=== PATIENT | female | born 1945 | race Caucasian/White ===

== ENCOUNTER 2017-05-19 06:04 | Inpatient (IN) | payer MEDICARE, BC ==
[2017-05-11 15:22] LABS: BASOPHILS 0.4 %; BASOPHILS ABSOLUTE 0.03 10/3/uL (0.0-0.16); EOSINOPHILS ABSOLUTE 0.28 10/3/uL (0.0-0.53); IMMATURE GRANULOCYTES 0.1 %; IMMATURE GRANULOCYTES ABSOLUTE 0.01 10/3/uL (0.0-0.11); LYMPHOCYTES 46.7 %; LYMPHOCYTES ABSOLUTE 3.24 10/3/uL (0.67-4.30); MEAN CORPUSCULAR HEMOGLOB 31.6 pg (26.0-34.0); MEAN PLATELET VOLUME 9.7 fL (9.2-13.0); MONOCYTES 14.1 %; MONOCYTES ABSOLUTE 0.98 10/3/uL (0.21-1.20); NEUTROPHILS 34.7 %; RBC DISTRIBUTION WIDTH 15.3 % (12.0-16.0); RED CELL COUNT 4.02 10/6/uL (4.0-5.6)
[2017-05-11 15:24] LABS: HEMATOCRIT 38.4 % (36.0-48.0); HEMOGLOBIN 12.7 g/dL (12.0-16.0); MANUAL DIFF NO %; MEAN CORPUS HGB CONC 33.1 g/dL (32.0-36.0); MEAN CORPUSCULAR VOLUME 95.5 fL (80-100); PLATELET COUNT 382 10/3/uL (150-400); WHITE BLOOD CELLS 6.9 10/3/uL (4.5-10.5)
[2017-05-11 15:27] LABS: PROTIME (NOT ORD) 13.2 SEC (12.0-14.5)
[2017-05-11 15:34] LABS: BUN (BLOOD UREA NITROGEN) 16 MG/DL (6-23); CALCIUM, SERUM 9.6 MG/DL (8.5-10.4); CHLORIDE, SERUM 104 MMOL/L (96-112); CO2 (CARBON DIOXIDE) 31 MMOL/L (24-34); CREATININE 0.86 MG/DL (0.55-1.02); GFR AFRICAN AMERICAN 78 ML/MIN (>=60); GFR NON AFRICAN AMERICAN 67 ML/MIN (>=60); GLUCOSE, SERUM 81 MG/DL (60-99); POTASSIUM, SERUM 3.8 MMOL/L (3.5-5.3); SODIUM, SERUM 142 MMOL/L (135-148)
[2017-05-11 17:45] LABS: ASCORBIC ACID (UR NOT ORDER) 40 (NEG); BILIRUBIN, URINE NEGATIVE (NEG); KETONE, URINE NEGATIVE (NEG); LEUKOCYTE ESTERASE(NOT OR TRACE (NEG); WBC (NOT ORDERED) (RFLEX) 1 (0-5)
--- NOTE | ~2017-05-19 | OP ---
Record Of Operation [facility] [address] [place]. [address] NAME: ANA VALADEZ : 43 STATUS : ADM IN PAT#: [id number] AGE: 72 ADM/REG DATE : 05/19/17 MR#: [id number] REPORT SERV DATE: 05/19/17 DICTATED BY: TAVARES TORRES DATE: 05/19/17 REPORT STATUS : Draft TRANSCRIBED BY: MODL DATE: 05/19/17 DATE OF PROCEDURE: 05/19/2017 PREOPERATIVE DIAGNOSIS: Recurrent ovarian cancer. POSTOPERATIVE DIAGNOSIS: Recurrent ovarian cancer. PROCEDURE: 1. Diagnostic laparoscopy with extensive laparoscopic enterolysis, taking up approximately three hours of the four procedure. CPT code 90396. 2. Exploratory laparotomy with secondary tumor debulking for recurrent ovarian cancer. CPT code 88206. 3. Removal IP port. SURGEON: Tavares Torres MD. ANESTHESIA: General. ESTIMATED BLOOD LOSS: 25 mL. CRYSTALLOID: 1800 mL. DRAINS: Perez. FINDINGS: Extensive adhesive disease was noted in the upper abdomen and pelvis likely secondary to her intraperitoneal chemotherapy. She also had an IP port in place. There were extensive adhesive disease again noted in the upper abdomen and pelvis requiring extensive dissection, both laparoscopically and open. Laparoscopically even with image guidance, the lesion in question could not be identified. It was thought to be a lesion lateral to the right common iliac artery, but this was just fibroblastic tissue on frozen section. The procedure was then converted to an open procedure where again extensive enterolysis was performed, and the lesion was finally located in the mesentery of the loop of distal ileum. The lesion itself was well circumscribed and easily removed from the mesenteric peritoneum. No gross residual disease was noted. Following removal of this area of recurrence, there were no peritoneal deformities noted either. 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 COMPLICATIONS: None. POSTOPERATIVE PLAN: Extubated to PACU. PROCEDURE IN DETAIL: After informed consent was signed, the patient was taken to the operating room and placed in dorsal supine position where adequate general anesthesia was administered. She was then placed in dorsal lithotomy position in [facility], and Record Of Operation [facility] [address] [place]. [address] NAME: ANA VALADEZ : 43 STATUS : ADM IN PAT#: [id number] AGE: 72 ADM/REG DATE : 05/19/17 MR#: [id number] REPORT SERV DATE: 05/19/17 DICTATED BY: TAVARES TORRES DATE: 05/19/17 REPORT STATUS : Draft TRANSCRIBED BY: MILES DATE: 05/19/17 prepped and draped in usual fashion, and a Perez catheter was placed. A left upper quadrant incision was made with a scalpel and carried down to the fascia which was incised, muscle , posterior sheath entered sharply, trocar placed, and abdomen insufflated with CO2 gas. An additional trocar was placed in the left lower quadrant and using endoscopic scissors, extensive enterolysis was performed removing multiple loops of small bowel from the anterior abdominal wall to facilitate port placement. Two additional ports were placed into the right upper quadrant and right lower quadrant. Using the 5 mm scope, additional enterolysis was performed in the upper abdomen removing the small and large intestine from the anterior abdominal wall. Once enough room was present to place the camera port, the camera port was placed in the supraumbilical region. The patient was then placed in steep Trendelenburg and the robot was docked in the usual fashion. Extensive enterolysis was performed in the right lower quadrant where there were multiple redundant loops of small bowel adherent to the ureter, right common iliac artery, and vein. The mass in question on the PET-CT scan was noted to be 2 cm inferior to the bifurcation of the aorta and then 5 cm lateral. This area was searched for approximately 2 hours with multiple enterolysis performed but then no lesion was located. Decision at this point was made to abort the laparoscopic portion of the procedure and proceed with a laparotomy. A small midline laparotomy incision was then made after the robot was undocked and all instruments were removed the abdomen. The incision was carried down the fascia, which was incised, muscle , posterior sheath entered sharply, and incision extended inferiorly and superiorly. The Bookwalter retractor apparatus was assembled and deployed, and all trocars were removed from the abdomen. The extensive enterolysis was performed to restore normal anatomy to the small bowel, and the bowel was run from the terminal ileum to the ligament of Treitz and one loop of terminal ileum was flipped over on itself, and there was noted to be a 2 cm well circumscribed lesion in the mesentery of the terminal ileum. Using meticulous sharp dissection, this nodule was then removed from the peritoneum of the mesentery of the terminal ileum and was sent for frozen section which confirmed recurrent high-grade serous ovarian cancer. There was no bleeding noted on the resection on the mesenteric side, and no vessels were molested. The bowel was then again run from the terminal ileum to the ligament of Treitz. There were no injuries appreciated. The peritoneum and the upper abdomen was palpated and found to be without deformities. The cecum was then again examined and found to be without injury or deformity. This concluded the procedure. The Bookwalter retractor apparatus was disassembled. There were no laps used in the abdomen. The abdominal incision was closed with #1 looped PDS x2, and the skin was closed with 4-0 Monocryl and Dermabond. Prior to closing the abdomen, an incision was made over the prior port site incision and carried down to the port. The port itself was then grasped and removed along with an intact catheter. The port site was then irrigated and closed with 2-0 Vicryl suture with a running stitch from the Shayne's fascia, and the skin was closed with 4-0 Monocryl and Dermabond. The fascia from the left upper quadrant incision was closed with 0 Vicryl suture and the skin from all trocar sites was closed with 4-0 Monocryl and Dermabond. The patient tolerated the procedure well and was awakened, extubated, and sent to the PACU in stable condition. MILIND/MILES Record Of [address] [address] NAME: ANA VALADEZ : 43 STATUS : ADM IN PAT#: [id number] AGE: 72 ADM/REG DATE : 05/19/17 MR#: [id number] REPORT SERV DATE: 05/19/17 DICTATED BY: TAVARES TORRES DATE: 05/19/17 REPORT STATUS : Draft TRANSCRIBED BY: MILES DATE: 05/19/17 Tavares Torres MD / [id number] CC: Tavares Torres MD
[~2017-05-19 06:04] MED LIST: *UNABLE1; ADVIL PO; B121000P IM; CALTRA600D PO; CHEMOTHERAPY; CHEMOTHERAPY IV; CLARIT10 PO; CYMBALTA20 PO; DEX4; DEX4 PO; GAS-X80 MG PO; IBU-200200 MG PO; KCL20UDL PO; LEVAQUIN750 MG PO; LOP25 PO; LOVENOX IM; LOVENOX40 SC; MACROBID PO; MAGNESIUM CITRATE PO; MEDROLPAK4 PO; METAMUCIL CAN7 OZ PO; MIRALAX POWDER1 PKT PO; MIRALAXPKT PO; NEUR100 PO; PCET PO; PREMPRO1 TA1 PO; PROTONIX PO; SANCUSO TOP; SENTAB PO; SUPRAX200 MG/5 M PO; T PO; VITAMIN D31000 UNIT PO; ZITHROMAX500 MG PO; ZOFRAN8 PO; ZOFRANODT8
[2017-05-20 05:19] LABS: BASOPHILS 0.2 %; BASOPHILS ABSOLUTE 0.02 10/3/uL (0.0-0.16); EOSINOPHILS 0 %; HEMATOCRIT 38.6 % (36.0-48.0); IMMATURE GRANULOCYTES 0.3 %; IMMATURE GRANULOCYTES ABSOLUTE 0.03 10/3/uL (0.0-0.11); LYMPHOCYTES 12.7 %; MEAN CORPUS HGB CONC 33.7 g/dL (32.0-36.0); MEAN CORPUSCULAR HEMOGLOB 31.9 pg (26.0-34.0); MEAN CORPUSCULAR VOLUME 94.8 fL (80-100); MEAN PLATELET VOLUME 9.5 fL (9.2-13.0); MONOCYTES 11.9 %; NEUTROPHILS 74.9 %; NEUTROPHILS ABSOLUTE 8.86 10/3/uL (2.02-8.40); PLATELET COUNT 341 10/3/uL (150-400); RBC DISTRIBUTION WIDTH 15.2 % (12.0-16.0); RED CELL COUNT 4.07 10/6/uL (4.0-5.6)
[2017-05-20 05:21] LABS: MANUAL DIFF NO %; WHITE BLOOD CELLS 11.8 10/3/uL (4.5-10.5)
[2017-05-20 05:39] LABS: BUN (BLOOD UREA NITROGEN) 9 MG/DL (6-23); CALCIUM, SERUM 8.7 MG/DL (8.5-10.4); CHLORIDE, SERUM 99 MMOL/L (96-112); CO2 (CARBON DIOXIDE) 31 MMOL/L (24-34); CREATININE 1.19 MG/DL (0.55-1.02); GFR AFRICAN AMERICAN 52 ML/MIN (>=60); GFR NON AFRICAN AMERICAN 45 ML/MIN (>=60); GLUCOSE, SERUM 134 MG/DL (60-99); POTASSIUM, SERUM 3.5 MMOL/L (3.5-5.3); SODIUM, SERUM 138 MMOL/L (135-148)
[2017-05-20 11:35] LABS: BASOPHILS 0.2 %; BASOPHILS ABSOLUTE 0.02 10/3/uL (0.0-0.16); EOSINOPHILS 0.3 %; EOSINOPHILS ABSOLUTE 0.03 10/3/uL (0.0-0.53); HEMATOCRIT 38.1 % (36.0-48.0); HEMOGLOBIN 12.7 g/dL (12.0-16.0); IMMATURE GRANULOCYTES 0.2 %; IMMATURE GRANULOCYTES ABSOLUTE 0.02 10/3/uL (0.0-0.11); LYMPHOCYTES 15.4 %; LYMPHOCYTES ABSOLUTE 1.81 10/3/uL (0.67-4.30); MANUAL DIFF NO %; MEAN CORPUS HGB CONC 33.3 g/dL (32.0-36.0); MEAN CORPUSCULAR HEMOGLOB 31.5 pg (26.0-34.0); MEAN CORPUSCULAR VOLUME 94.5 fL (80-100); MEAN PLATELET VOLUME 9.5 fL (9.2-13.0); MONOCYTES 12.3 %; MONOCYTES ABSOLUTE 1.45 10/3/uL (0.21-1.20); NEUTROPHILS 71.6 %; NEUTROPHILS ABSOLUTE 8.43 10/3/uL (2.02-8.40); PLATELET COUNT 302 10/3/uL (150-400); RBC DISTRIBUTION WIDTH 15.5 % (12.0-16.0); RED CELL COUNT 4.03 10/6/uL (4.0-5.6); WHITE BLOOD CELLS 11.8 10/3/uL (4.5-10.5)
[2017-05-21 05:17] LABS: BASOPHILS 0.1 %; BASOPHILS ABSOLUTE 0.01 10/3/uL (0.0-0.16); EOSINOPHILS 2.3 %; EOSINOPHILS ABSOLUTE 0.26 10/3/uL (0.0-0.53); HEMOGLOBIN 10.5 g/dL (12.0-16.0); IMMATURE GRANULOCYTES 0.3 %; IMMATURE GRANULOCYTES ABSOLUTE 0.03 10/3/uL (0.0-0.11); LYMPHOCYTES 19.2 %; LYMPHOCYTES ABSOLUTE 2.21 10/3/uL (0.67-4.30); MEAN CORPUS HGB CONC 33.2 g/dL (32.0-36.0); MEAN CORPUSCULAR HEMOGLOB 31.8 pg (26.0-34.0); MEAN CORPUSCULAR VOLUME 95.8 fL (80-100); MEAN PLATELET VOLUME 10.4 fL (9.2-13.0); MONOCYTES 10.3 %; MONOCYTES ABSOLUTE 1.19 10/3/uL (0.21-1.20); NEUTROPHILS 67.8 %; NEUTROPHILS ABSOLUTE 7.81 10/3/uL (2.02-8.40); PLATELET COUNT 299 10/3/uL (150-400); RBC DISTRIBUTION WIDTH 15.6 % (12.0-16.0); WHITE BLOOD CELLS 11.5 10/3/uL (4.5-10.5)
[2017-05-21 05:20] LABS: BUN (BLOOD UREA NITROGEN) 9 MG/DL (6-23); CALCIUM, SERUM 8.4 MG/DL (8.5-10.4); CHLORIDE, SERUM 106 MMOL/L (96-112); CO2 (CARBON DIOXIDE) 28 MMOL/L (24-34); CREATININE 0.65 MG/DL (0.55-1.02); GFR AFRICAN AMERICAN 102 ML/MIN (>=60); GFR NON AFRICAN AMERICAN 88 ML/MIN (>=60); GLUCOSE, SERUM 103 MG/DL (60-99); POTASSIUM, SERUM 3.2 MMOL/L (3.5-5.3); SODIUM, SERUM 139 MMOL/L (135-148)
[2017-05-21 05:26] LABS: HEMATOCRIT 31.6 % (36.0-48.0); MANUAL DIFF NO %
[2017-05-21] MEDS ORDERED: PCET PO (13:47)
[2017-05-21] MEDS ORDERED: COMP10B PO (13:47)
[2017-05-21] MEDS ORDERED: ZOFRAN8 PO (13:48)
[2017-06-22] MEDS ORDERED: DEX4 PO (20:33)
[2017-06-22] MEDS ORDERED: CYMBALTA20 PO (20:34)
[2017-06-22] MEDS ORDERED: ZOFRANODT8 PO/SL (20:34)
[2017-06-22] MEDS ORDERED: NEUR100 PO (20:35)
[2017-06-22] MEDS ORDERED: B121000P IM (20:35)
[2017-06-22] MEDS ORDERED: CLARIT10 PO (20:37)
[2017-06-22] MEDS ORDERED: CARBOPLATIN IV (20:37)
[2017-06-22] MEDS ORDERED: DOXORUBICIN LIPOSOMAL IV (20:37)
[2017-06-22] MEDS ORDERED: CALTRA600D PO (20:37)
[2017-06-22] MEDS ORDERED: PERI-COLACE1 TAB PO ×2 (20:39)
[2017-06-22] MEDS ORDERED: PROTONIX PO (20:42)
[2017-06-22] MEDS ORDERED: NEULASTA SC (20:42)
[2017-06-22] MEDS ORDERED: ADVIL PO (20:42)
== END 2017-05-21 15:42 | disposition home or self-care (01) | DRG 336 ==
LOC: SDC 06:04 → SDC/OF 12:44 → 4EA 14:24
PROVIDERS: Obstetrics & Gynecology Gynecology
PROC: 0DBV0ZZ Excision of Mesentery, Open Approach (ICD-10-PCS; principal; 2017-05-19 07:00)
PROC: 0DN84ZZ Release Small Intestine, Percutaneous Endoscopic Approach (ICD-10-PCS; principal; 2017-05-19 07:00)
PROC: 0WP803Z Removal of Infusion Device from Chest Wall, Open Approach (ICD-10-PCS; principal; 2017-05-19 07:00)
PROC: 0DNB0ZZ Release Ileum, Open Approach (ICD-10-PCS; principal; 2017-05-19 07:00)
PROC: 0TN64ZZ Release Right Ureter, Percutaneous Endoscopic Approach (ICD-10-PCS; principal; 2017-05-19 07:00)
PROC: 0DNE4ZZ Release Large Intestine, Percutaneous Endoscopic Approach (ICD-10-PCS; principal; 2017-05-19 07:00)
PROC: 0DNW0ZZ Release Peritoneum, Open Approach (ICD-10-PCS; principal; 2017-05-19 07:00)
PROC: 8E0W4CZ Robotic Assisted Procedure of Trunk Region, Percutaneous Endoscopic Approach (ICD-10-PCS; principal; 2017-05-19 07:00)
PROC: 0DNV0ZZ Release Mesentery, Open Approach (ICD-10-PCS; principal; 2017-05-19 07:00)
DX: K66.0 Peritoneal adhesions (postprocedural) (postinfection) (principal); C78.6 Secondary malignant neoplasm of retroperitoneum and peritoneum; G62.9 Polyneuropathy, unspecified; K21.9 Gastro-esophageal reflux disease without esophagitis; Z53.31 Laparoscopic surgical procedure converted to open procedure; Z85.43 Personal history of malignant neoplasm of ovary; R13.10 Dysphagia, unspecified; Z90.722 Acquired absence of ovaries, bilateral; Z90.712 Acquired absence of cervix with remaining uterus; Z90.81 Acquired absence of spleen; Z90.49 Acquired absence of other specified parts of digestive tract; Z88.1 Allergy status to other antibiotic agents; Z88.8 Allergy status to other drugs, medicaments and biological substances
CPT/HCPCS: 36415; 71020; 80048; 81001; 85025; 85610; 85730; 86850; 86900; 86901; 88305; 88307; 88331; 93005; A9270-GY; J0694; J1885; J2405; J2550; J2710; J3010; P9045